=== PATIENT | female | born 1970 | race Caucasian/White ===

== ENCOUNTER → 2018-04-06 11:00 | Outpatient (CLI) | payer SELFPAY ==
--- NOTE | 2018-04-06 11:00 | EMB_PTH ---
PATIENT: JESUS ABARCA LOC: [facility] U#:[id number] AGE/SX: 54/F ROOM: RE04/06/[address]: Dr. Long Hernandez MD : 1970 BED: DIS: SPEC #: [id number] RECD: 04/07/18 10:33 STATUS: RAJINDER LUIS #: [id number] SHARMILA: 04/06/18 11:[address]: Long Hernandez DEPT: SURGICAL PATHOLOGY RECD BY: Anoop Pineda Tissues: Endometrium, NOS Procedures: Surgery Specimen Level IV HEADER OPERATION: Endometrial biopsy PRE-OP DIAGNOSIS: N93.9 TISSUE SUBMITTED: Endometrial biopsy MICROSCOPIC DIAGNOSIS Endometrial biopsy: Disordered proliferative endometrium to simple endometrial hyperplasia without atypia. BRENTON:linda 04/08/18 COMMENT Clinical correlation and appropriate follow up are necessary. MICROSCOPIC DESCRIPTION Slides are reviewed. GROSS DESCRIPTION Received in fixative is one container labeled with the patient's name and designated EM biopsy. The specimen consists of multiple fragments of pink hemorrhagic soft tissue that in aggregate measure 3 x 2.5 x 0.3 cm. The specimen is totally submitted in one cassette. / SJ:linda 04/07/18 TC:5 CPT: 32286
[2018-04-17 14:07] LABS: HPV APTIMA, High Risk Negative (Negative)
[2018-04-17 14:08] LABS: HPV Reflexed? YES, CHARGE PATIENT
== END ==
PROVIDERS: Referring Provider Obstetrics & Gynecology; Visit Provider Obstetrics & Gynecology
DX: Z12.4 Encounter for screening for malignant neoplasm of cervix (principal); N93.9 Abnormal uterine and vaginal bleeding, unspecified
CPT/HCPCS: 87624; 88175; 88305; G0145

== ENCOUNTER → 2019-08-09 10:45 | Outpatient (CLI) | payer SELFPAY ==
[2019-08-12 12:04] LABS: HPV Reflexed? NOT INDICATED
== END ==
PROVIDERS: Visit Provider Obstetrics & Gynecology
DX: Z12.4 Encounter for screening for malignant neoplasm of cervix (principal)
CPT/HCPCS: 88175; G0145

== ENCOUNTER → 2020-08-14 | Outpatient (CLI) | payer OTHER, SELFPAY ==
--- NOTE | 2020-08-14 | EMB_PTH ---
PATIENT: JESUS ABARCA LOC: [facility] U#:[id number] AGE/SX: 50/F ROOM: RE08/14/[address]: Dr. 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 See comment. BRENTON:linda 08/16/2020 COMMENT Clinical correlation and appropriate follow up are necessary. Please make reference to previous specimen ([id number]) endometrial biopsy with diagnosis of disordered proliferative endometrium to simple endometrial hyperplasia without atypia. MICROSCOPIC DESCRIPTION Slides are reviewed. GROSS DESCRIPTION Received in fixative is one container labeled with the patient's name and designated EM biopsy. The specimen consists of multiple fragments of hemorrhagic soft tissue that in aggregate measure 3 x 2.5 x 0.2 cm. The entire specimen is submitted in one cassette. / SJ:rg 08/15/20 TC:5 [facility]: [id number]
[2020-08-17 13:49] LABS: HPV Reflexed? NOT INDICATED
== END | disposition home or self-care (01) ==
LOC: LABSPEC 08-15 09:39
PROVIDERS: Visit Provider Obstetrics & Gynecology
DX: Z12.4 Encounter for screening for malignant neoplasm of cervix (principal); N95.0 Postmenopausal bleeding
CPT/HCPCS: 88175; 88305; G0145